=== PATIENT | male | born 1975 | race Caucasian/White ===

== ENCOUNTER 2017-08-01 07:54 | Day surgery (SDC) | payer OTHER ==
[2017-07-31 14:47] VITALS: BMI 22.7
[~2017-08-01] VITALS: Ht 162.6 cm; Wt 59.0 kg
[~2017-08-01 07:54] MED LIST: CEFAZOLIN 1 GM INJ ONE
[2017-08-01] MEDS ORDERED: BUPIVACAINE 0.25% (MPF) 30 ML INJ ONE (08:15)
[2017-08-01] MEDS ORDERED: SOD CHLORIDE 0.9% 1,000 ML IV ONE (09:30)
[2017-08-01] MEDS ORDERED: CEFAZOLIN 2 GM/50 ML (PMX) 50 ML IVPB ONE (09:30)
[2017-08-01 09:49] VITALS: Ht 162.6 cm; Wt 59.0 kg
[2017-08-01 09:52] VITALS: BP 112/62; PULSE 58; RESP 20
[2017-08-01] MEDS ORDERED: ONDANSETRON 4 MG INJ ONE (12:07)
[2017-08-01] MEDS ORDERED: KETOROLAC 30 MG INJ ONE (12:07)
[2017-08-01] MEDS ORDERED: MIDAZOLAM 1 MG/ML 2 ML INJ ONE (12:07)
[2017-08-01] MEDS ORDERED: BUPIVACAINE 0.5% (SDV) 30 ML INJ ONE (12:14)
[2017-08-01] MEDS ORDERED: LIDOCAINE 2% (MDV) 20 ML INJ ONE (12:15)
--- NOTE | 2017-08-01 12:38 | OPR ---
Date/Time of Note Date/Time of Note DATE: 08/01/17 TIME: 12:36 Operative Report Procedure Date: Aug 01, 2017 Preoperative Diagnosis right posterior scalp mass Postoperative Diagnosis same Operation/Procedure Performed 1. excision of right posterior scalp mass 7 cm incision 5 cm mass 2. localized adjacent tissue transfer with the use of skin flaps 14 sq cm defect 3. therapeutic injection of subcutaneous local anesthesia Surgeon see signature line Steam [employer] Helper none Anesthesia Type: general Estimated Blood Loss: 0 - 10 ml's Transfusion none Specimen right posterior scalp mass Grafts/Implants none Complications none Pt Condition Post Procedure: stable Indications This is a 41-year-old male with a right posterior scalp mass. He requests surgical excision. Risks alternatives benefits and percent were discussed the patient. Patient expresses understanding consents to the operation. Procedure Description Patient is taken to the OR and prepped and draped in usual sterile fashion. Surgical timeout was performed. IV antibiotics were given. Incision is made transversely over the right posterior scalp mass. Dissection cautery was carried onto the mass the mass was circumferentially excised excised off the muscle. There is good hemostasis. Due to the large tissue defect localized adjacent tissue transfer with these of skin flaps was performed. Multilayer closure with interrupted 3-0 Vicryl and skin kamaljit. Therapeutic subcutaneous local anesthesia was injected the beginning and end of the case. Dry dressings were applied. Kelsey GORMAN Aug 01, 2017 12:38
[2017-08-01 12:47] VITALS: BP 116/77; PULSE 70; RESP 36
[2017-08-01 12:52] VITALS: BP 108/68; PULSE 66; RESP 22
[2017-08-01 12:57] VITALS: BP 106/73; PULSE 60; RESP 22
[2017-08-01] MEDS ORDERED: HYDROCODONE/APAP (5/325) TAB PO ONE (13:00)
[2017-08-01 13:15] VITALS: BP 108/65; PULSE 71; RESP 16
== END 2017-08-01 14:07 | disposition home or self-care (01) ==
LOC: SDS 07:54
PROVIDERS: ATTEND Surgery
DX: D17.0 Benign lipomatous neoplasm of skin and subcutaneous tissue of head, face and neck (principal)
CPT/HCPCS: 14021; 21012; 88307; J0690; J1885; J2250; J2405; J3010